=== PATIENT | male | born 1945 | race Caucasian/White ===

== ENCOUNTER → 2019-04-03 | Day surgery (SDC) | payer MEDICARE, BC ==
[~2019-04-03] MED LIST: Lactated Ringers 1,000 ML IV SCH; Propofol 200 MG/20 ML SDV IV ONE
--- NOTE | 2019-04-03 12:27 | OR ---
DATE OF OPERATION: 04/03/2019 PREOPERATIVE DIAGNOSIS: SCREENING COLONOSCOPY. POSTOPERATIVE DIAGNOSIS: SCREENING COLONOSCOPY. SURGEON: Stiven Osborne MD PROCEDURE: FULL-LENGTH COLONOSCOPY WITH FORCEPS POLYP REMOVAL X2. ANESTHESIA: MAC via OIL BURNER. COMPLICATIONS: None. SPECIMEN: Two small sessile polyps, see report. FINDINGS: 1. Full-length colonoscopy. 2. Sessile polyps x2, each less than 0.5 cm. RECOMMENDATIONS: Followup colonoscopy in 5 years. INDICATIONS: Mr. Herndon is a healthy 73-year-old male who is here for his screening colonoscopy. It had been 10 years since his last procedure. DESCRIPTION OF PROCEDURE: The patient was prepped and draped, placed in the left lateral decubitus position. A lubricated Olympus colonoscope was inserted and easily advanced to the cecum. Direct visualization of the ileocecal valve and appendiceal orifice was accomplished. The bowel prep was fine. Upon withdrawal of the scope in the proximal ascending colon, the patient had a small flat sessile polyp, probably about 3 or 4 mm, removed with 3 forceps biopsies in its entirety. The rest of the ascending and transverse colon were completely benign. Right at the splenic flexure, the patient had another 2nd small polyp also removed with a forceps in its entirety with 1 biopsy. The rest of the descending colon was unremarkable. Throughout the sigmoid and rectosigmoid area, there were no further polyps, mass, ulceration, or bleeding sites. No vascular abnormalities or signs of colitis. There were no diverticula. The rectal vault was unremarkable. Retroflexion of scope in the rectum showed no anal lesions. Air was suctioned, scope removed without complication. The patient was stable in the recovery room. ALVA/APOLINAR /[id number]
== END ==
LOC: CC.SDS 08:23
PROVIDERS: ATTEND Family Medicine
DX: Z12.11 Encounter for screening for malignant neoplasm of colon (principal); D12.2 Benign neoplasm of ascending colon; K63.5 Polyp of colon; K21.9 Gastro-esophageal reflux disease without esophagitis; N40.0 Benign prostatic hyperplasia without lower urinary tract symptoms; I10 Essential (primary) hypertension; E78.5 Hyperlipidemia, unspecified; E03.9 Hypothyroidism, unspecified; E55.9 Vitamin D deficiency, unspecified; Z79.899 Other long term (current) drug therapy
CPT/HCPCS: 00812; 45380; 88305; 93010; J2704; J7120

== ENCOUNTER 2024-05-18 08:12 | Day surgery (SDC) | payer MEDICARE, BC ==
[2024-05-18] MEDS: Lactated Ringers 1,000 ML IV SCH (08:33)
[2024-05-18] MEDS ORDERED: Propofol 200 MG/20 ML SDV ONE (09:12)
[2024-05-18] MEDS ORDERED: fentaNYL 50 MCG/ML SDV ONE (09:12)
[2024-05-18] MEDS ORDERED: Ketamine 200 MG/20 ML MDV ONE (09:12)
[2024-05-18 10:20] VITALS: BP 109/65; PULSE 65
== END 2024-05-18 10:15 | disposition home or self-care (01) ==
LOC: CC.SDS 08:12
PROVIDERS: ATTEND Family Medicine
DX: Z12.11 Encounter for screening for malignant neoplasm of colon (principal); Z86.0100 Personal history of colon polyps, unspecified; I10 Essential (primary) hypertension; E03.9 Hypothyroidism, unspecified; N40.0 Benign prostatic hyperplasia without lower urinary tract symptoms; E78.5 Hyperlipidemia, unspecified; Z79.890 Hormone replacement therapy; Z79.899 Other long term (current) drug therapy
CPT/HCPCS: 00811; 99100; J2704; J3010; J3490; J7120